=== PATIENT | male | born 1985 | race Caucasian/White ===

== ENCOUNTER 2022-02-13 10:01 | Emergency (ER) | payer SELFPAY ==
[2022-02-13 10:05] VITALS: BP 139/93; PULSE 110; RESP 22; TEMP 37.1; O2SAT 100; BMI 29.5
[2022-02-13 10:27] LABS: Strep A Nucleic Acid Negative (Negative)
[2022-02-13 10:35] LABS: COVID-19 Test Negative (Negative); IDNOW Serial# 16C4AD1C
[2022-02-13 10:37] LABS: IDNOW Serial# 08D9AD1C
[2022-02-13 10:38] LABS: Influenza A Negative (Negative); Influenza B2 Negative (Negative)
--- NOTE | 2022-02-13 10:48 | ED_ITS ---
HPI - General Adult General Chief complaint: General Medical Stated complaint: Fever/Chills/body aches Time Seen by Provider: 02/13/22 10:48 Source: patient Mode of arrival: ambulatory Limitations: no limitations History of Present Illness HPI narrative: Patient is a 36 year old male presenting to the emergency department today with fever, chills, and feeling generally unwell. Patient states that his nieces were recently sick with a viral illness and he is concerned that he may have got it from them. Patient states that he feels generally unwell with body aches and a subjective fever. Patient denies any dizziness, lightheadedness, abdominal pain, nausea, vomiting, chills, blurry vision, double vision, loss of vision, chest pain, difficulty breathing, shortness of breath, back pain, night sweats, pain with urination, increased urinary frequency, increased urinary urgency, blood in his urine or stool, syncope or a near syncopal episode, recent trauma or falls, bowel incontinence, bladder incontinence, bowel retention, bladder retention, or any other complaints at this time. Onset (ago): day(s) Severity: mild Relieving factors: none Exacerbating factors: none Treatments prior to arrival: none Related Data Allergies Allergy/AdvReac Type Severity Reaction Status Date / Time No Known Allergies Allergy Unverified 08/15/20 16:31 Review of Systems Constitutional: Constitutional: Reports no additional constitutional complaints, Reports body ache(s), Denies chills, Reports fever(s) and Denies night sweats Eyes: Eyes: Reports no additional eye complaints, Denies blurry vision, Denies change in vision, Denies diplopia, Denies eye discharge, Denies loss of vision and Denies eye pain ENT: Denies dizziness Cardiovascular: Cardiovascular: Reports no additional cardiovascular complaints, Denies chest pain, Denies lightheadedness, Denies Loss of Consciousness and Denies dyspnea Respiratory: Respiratory: Reports no additional respiratory complaints and Denies dyspnea Gastrointestinal: Gastrointestinal: Reports no additional gastrointestinal complaints, Denies abdominal pain, Denies melena, Denies hematochezia, Denies change in bowel habits and Denies change in stool character Genitourinary: Genitourinary: Reports no additional male genitourinary complaints, Denies hematuria, Denies oliguria, Denies difficulty urinating, Denies dysuria, Denies urinary frequency, Denies urinary hesitancy, Denies urinary incontinence and Denies urinary urgency Musculoskeletal: Musculoskeletal: Reports no additional musculoskeletal complaints, Denies numbness and Denies tingling Neurologic: Denies dizziness, Denies loss of vision, Denies numbness and Denies tingling Psychiatric: Psychiatric: Reports no additional psychiatric complaints Endocrine: Endocrine: Reports no additional endocrine complaints Hematologic/Lymphatic: Hematologic/Lymphatic: Reports no additional hematologic/lymphatic complaints Allergic/Immunologic: Allergic/Immunologic: Reports no additional allergic/immunologic complaints [facility] Past Medical History Attestation statement: The following information was validated with the patient. Source: old records reviewed Medical History Asthma Social History Social History Advance Directives: No Advance Directives Information Provided: No Physical Exam ED Vital Signs: Vital Signs - 24 hr 02/13/22 10:05 Temperature 98.8 F Pulse Rate 110 H Respiratory Rate 22 H Blood Pressure 139/93 H Pulse Oximetry 100 BMI result Body Mass Index 29.5 Const General: cooperative, no acute distress, alert and awake Nutritional Appearance: well nourished Orientation/consciousness: patient oriented x3 Limitations: no limitations HENMT Head: Yes normal to inspection and Yes atraumatic Ears: hearing grossly normal bilaterally and external ears normal General nose exam: Normal external nose present, no nasal discharge noted and no epistaxis Face and sinus: Yes normal facial exam, No abrasion and No laceration Mouth: Normal oral and palatal mucosa present, no drooling and no muffled voice Eyes General: appearance normal, both eyes and all related structures Periorbital: periorbital findings normal Eyelids: Yes eyelids normal Conjunctivae: conjunctivae normal Pupils: Equal, round and reactive pupils present EOM: EOMs intact bilaterally Neck Neck: Yes normal visual inspection, Yes full ROM and Yes no lymphadenopathy Chest Chest palpation & inspection: normal inspection of the chest Resp Effort & Inspection: normal respiratory effort and able to speak in complete sentences Auscultation: clear to auscultation bilaterally Cardio Rate: regular rate Rhythm: regular rhythm GI Inspection: Yes normal to inspection Neuro General: patient oriented x3 and moves all extremities Cranial nerves: Yes Equal, round and reactive pupils present Cognition (Neuro): normal cognition Motor exam (neuro): 5/5 motor strength present throughout Sensory Exam: Normal double simultaneous stimulation for sensation Coordination: [id number] test normal Extrem General: Yes normal to inspection, Yes full ROM and Yes capillary refill normal Psych Appearance: grossly normal Mental Status: mental status grossly normal Affect: normal affect Attitude: cooperative Thought process: Normal thought process present Thought content: Normal thought content present Insight: Good insight present (Psych) Medical Decision Making MDM Narrative Medical decision making narrative: Patient is a 36 year old male presenting to the emergency department today with a subjective fever and body aches. Patient's physical exam was unremarkable. Patient's rapid COVID-19, influenza, and strep tests were negative. I explained my physical exam findings as well as all test results to the patient. I answered all questions asked by the patient. I stressed the importance of the patient taking his medication as prescribed. I stressed the importance of the patient following up with his primary care provider. I stressed the importance of the patient returning to the emergency department immediately if his symptoms were to worsen or if he were to develop any dizziness, shortness of breath, difficulty breathing, chest pain, blurry vision, loss of vision, nausea, vomiting, abdominal pain, fever, chills, back pain, or any other complaints. Patient verbalized agreement and understanding with this treatment plan and discharge. Differential Diagnosis Differential Diagnosis: viral illness, fever Medical Records Medical records reviewed: Yes I reviewed the patient's medical records. Lab Data Lab results reviewed: Yes I reviewed the patient's lab results. Labs: Lab Results 02/13/22 02/13/22 02/13/22 Range/Units 10:12 10:12 10:12 COVID-19 ([facility]) Negative (Negative) COVID-19 Clin Com See Note Influenza Type A ([facility]) Negative (Negative) Influenza Type B ([facility]) Negative (Negative) Influenza A & B Note See Note S. pyogenes GrpA [facility]ON Negative (Negative) Discharge Plan Discharge Clinical Impression: Viral illness Patient Disposition: Home, Self-Care Instructions: Viral Syndrome (ED) Additional Instructions: Follow up with your primary care provider. Return to the emergency department immediately if your symptoms worsen or if you develop any dizziness, shortness of breath, difficulty breathing, chest pain, blurry vision, loss of vision, nausea, vomiting, abdominal pain, fever, chills, back pain, or any other complaints. Referrals: Physician,None [Primary Care Provider] - 2 days (Follow up with your PCP. ) Stand Alone Forms: Work/School Release Print Language: Yakut
== END 2022-02-13 11:20 | disposition home or self-care (01) ==
PROVIDERS: Emergency Provider Emergency Medicine
DX: B34.9 Viral infection, unspecified (principal); Z20.822 Contact with and (suspected) exposure to COVID-19; R50.9 Fever, unspecified
CPT/HCPCS: 87502; 87635; 87651; 99283

== ENCOUNTER 2022-02-14 20:09 | Emergency (ER) | payer SELFPAY ==
--- NOTE | ~2022-02-14 | CT_ITS ---
EXAMINATION: CT SOFT TISSUE NECK WITH CONTRAST CLINICAL INFORMATION: Right peritonsillar abscess. COMPARISON: None TECHNIQUE: Following the intravenous administration of 60 mL of Omnipaque 350 intravenous contrast, helical imaging was performed in the axial plane with generation of coronal and sagittal reformatted images. This CT examination was performed using dose optimization techniques as appropriate, variously including the following: *Automated exposure control. *Adjustment of mA and/or kV according to patient size (this includes techniques or standardized protocols for targeted exams where dose is matched to indication/reason for exam; i.e. extremities or head). *Use of iterative reconstruction technique. DLP: 875 mGy-cm FINDINGS: There is asymmetric prominence of the right palatine tonsil in the region of the oropharynx with heterogeneous enhancement and slight central hypoenhancement, consistent with a parapharyngeal phlegmon/early abscess. There is mild effacement of the adjacent fascial planes. There is mild mass effect on the airway which remains patent. No drainable fluid collection. Enlarged right cervical lymph nodes measuring up to 1.7 x 1.9 cm (see axial image 50/129) in greatest axial dimension, likely reactive. No additional lymphadenopathy. The parotid glands are homogeneous in attenuation. The submandibular glands are normal. The carotid sheath vasculature opacify normally. The thyroid gland is normal. The superior mediastinum is unremarkable. The lung apices are clear. The mastoid air cells and visualized portions of the paranasal sinuses are well-aerated. The temporomandibular joints are normal. No periapical disease is identified. No osseous abnormalities are seen. The imaged portions of the brain parenchyma are unremarkable. CT/CT soft tissue neck w con IMPRESSION: 1. Asymmetric prominence of the right palatine tonsil with heterogeneous enhancement, consistent with parapharyngeal phlegmon/early abscess formation. Mild effacement of the adjacent fascial planes with mass effect on the airway which remains patent. No drainable fluid collection. 2. Enlarged right cervical lymph nodes, likely reactive.
[2022-02-14 20:34] VITALS: BP 133/75; PULSE 106; RESP 16; TEMP 38.1; O2SAT 97; BMI 29.5
--- NOTE | 2022-02-14 21:12 | ED.URI ---
HPI - URI/Sore Throat General Chief Complaint: Upper Respiratory Symptoms Stated Complaint: right side of face hurts/ swollen-tonsils? Time Seen by Provider: 02/14/22 21:12 Source: patient Mode of arrival: ambulatory Limitations: no limitations History of Present Illness HPI Narrative: Patient with no significant past medical history been having sore throat body aches for last 1 week was seen here yesterday flu COVID and strep test was negative patient discharged home for viral pharyngitis comes back as having fever now and swelling on the right side of the neck worsening of pain to swallow Related Data Previous Rx's Medication Instructions Recorded amoxicillin 875 mg-potassium 1 tab PO BID #20 tab 02/14/22 clavulanate 125 mg tablet ibuprofen 600 mg tablet 600 mg PO Q6H PRN #30 tab 02/14/22 Allergies Allergy/AdvReac Type Severity Reaction Status Date / Time No Known Allergies Allergy Unverified 08/15/20 16:31 Review of Systems Review of Systems: Yes all other systems are reviewed and are negative [facility] Past Medical History Medical History Asthma Social History Social History Advance Directives: No Physical Exam Vital Signs: Vital Signs: Last Vital Signs Temp 99.1 F 02/14/22 23:17 Pulse 88 02/14/22 23:17 Resp 16 02/14/22 23:17 BP 113/71 02/14/22 23:17 Pulse Ox 96 02/14/22 23:17 BMI result Body Mass Index 29.5 Appearance: Alert. Oriented X3. No acute distress. Febrile to touch ENT: Right tonsil enlarged with exudate and erythema Neck: Right upper cervical lymphadenopathy++ Neck supple. CVS: Normal heart rate and rhythm. Pulses normal. Respiratory: No respiratory distress. Equal air entry bilateral, Abdomen: Soft and nontender. Skin: Skin warm and dry. Normal skin color. Normal skin turgor. Neuro: Oriented X 3. MDM - URI/Sore Throat Lab Data Attestation: I reviewed the patient's lab results. Result diagrams: 02/14/22 21:49 02/14/22 21:49 Labs: Lab Results 03/19/22 03/19/22 Range/Units 21:49 21:49 WBC 12.8 H (4.8-10.8) X10*3/uL RBC 5.30 (4.60-5.80) X10*6/uL Hgb 15.6 (14.0-18.0) g/dl Hct 47.4 (42.0-52.0) % MCV 89.4 (80.0-98.0) fL MCH 29.4 (27.0-33.0) pg MCHC 32.9 (31.0-36.0) g/dl RDW 14.2 (11.0-16.0) % Plt Count 221 (160-400) X10*3/uL MPV 11.0 (9.4-12.4) fL Immature Gran % (Auto) 0.3 (0.0-0.4) % Neut % (Auto) 83.3 H (45-73) % Lymph % (Auto) 6.6 L (20-40) % Eddy % (Auto) 9.2 (2-11) % Eos % (Auto) 0.2 (0-4) % Baso % (Auto) 0.4 (0-2) % Lymph # (Auto) 0.9 L (1.2-4.9) X10*3/uL Eddy # (Auto) 1.2 (0.1-1.2) X10*3/uL Eos # (Auto) 0.0 (0.0-0.4) X10*3/uL Baso # (Auto) 0.1 (0.0-0.2) X10*3/uL Abs Immat Gran (auto) 0.04 H (0.00-0.03) X10*3/uL Absolute Neuts (auto) 10.7 H (2.0-8.3) x10*3/uL Absolute Nucleated RBC 0.000 (0.0-0.012) X10*3/uL Nucleated RBC % (auto) 0.0 (0.0-0.2) /100WBC Sodium 138 (135-145) mmol/L Potassium 4.0 (3.3-5.1) mmol/L Chloride 103 (96-108) mmol/L Carbon Dioxide 23 (22-29) mmol/L Anion Gap 16 (12-20) BUN 15 (9-16) mg/dL Creatinine 0.82 (0.5-1.4) mg/dL Estim Creat Clear Calc 104.1 Estimated GFR > 60 Random Glucose 99 (60-115) mg/dL Calcium 9.5 (8.4-10.2) mg/dL Discharge Plan Discharge Clinical Impression: Abscess of tonsil Patient Disposition: Home, Self-Care Instructions: Peritonsillar Abscess (ED) Additional Instructions: Drink plenty of fluids Antibiotic as advised Follow with ENT/PCP if not better Prescriptions: New ibuprofen 600 mg tablet 600 mg PO Q6H PRN (Reason: pain) Qty: 30 0RF amoxicillin-pot clavulanate 875-125 mg tablet 1 tab PO BID Qty: 20 0RF Referrals: Oleksandr Bradley [Physician] - 5 days Stand Alone Forms: Work/School Release Interventions: ED Discharge Assessment Last Done: 02/14/22 23:40 Discharge Date/Time: 02/15/22 00:08
[2022-02-14 21:55] LABS: MANUAL DIFF FLAG NO
[2022-02-14 22:03] LABS: Basophils Absolute Auto 0.1 X10*3/uL (0.0-0.2); Basophils Percent Auto 0.4 % (0-2); Eosinophils Percent Auto 0.2 % (0-4); Hematocrit 47.4 % (42.0-52.0); Hemoglobin 15.6 g/dl (14.0-18.0); Imm Gran Abs Auto 0.04 X10*3/uL (0.00-0.03); Imm Gran Pct Auto 0.3 % (0.0-0.4); Lymphocytes Absolute Auto 0.9 X10*3/uL (1.2-4.9); Lymphocytes Percent Auto 6.6 % (20-40); Mean Corpuscular HGB Conc 32.9 g/dl (31.0-36.0); Mean Corpuscular Hemoglobin 29.4 pg (27.0-33.0); Mean Corpuscular Volume 89.4 fL (80.0-98.0); Monocytes Absolute Auto 1.2 X10*3/uL (0.1-1.2); Monocytes Percent Auto 9.2 % (2-11); Neutrophils Absolute Auto 10.7 x10*3/uL (2.0-8.3); Neutrophils Percent Auto 83.3 % (45-73); Platelet Count 221 X10*3/uL (160-400); Red Cell Distribution Width 14.2 % (11.0-16.0); White Blood Count 12.8 X10*3/uL (4.8-10.8)
[2022-02-14] MEDS: cefTRIAXone sodium 1 GM in 0.9 % Sodium Chloride 50 ML IV (22:07)
[2022-02-14] MEDS: Ketorolac Tromethamine 30 MG/ML VIAL IVPUSH (22:07)
[2022-02-14 22:08] LABS: Anion Gap 16 (12-20); Blood Urea Nitrogen 15 mg/dL (9-16); Calcium 9.5 mg/dL (8.4-10.2); Carbon Dioxide 23 mmol/L (22-29); Chloride 103 mmol/L (96-108); Creatinine Clr Calc Pharmacy 104.1; Estimated Glomerular Filt Rate > 60; Glucose Random 99 mg/dL (60-115); Sodium 138 mmol/L (135-145)
[2022-02-14] MEDS: dexAMETHasone sod phosphate 10 MG/ML VIAL IVPUSH (22:08)
[2022-02-14] MEDS: 0.9 % Sodium Chloride 1,000 ML 999 ML IV (22:34)
[2022-02-14] MEDS: iohexoL 350 MG/ML 100 ML INFUS..BTL IV (22:37)
[2022-02-14 23:17] VITALS: BP 113/71; PULSE 88; RESP 16; TEMP 37.3; O2SAT 96
== END 2022-02-15 00:08 | disposition home or self-care (01) ==
PROVIDERS: Emergency Provider Internal Medicine
DX: J36 Peritonsillar abscess (principal); R50.9 Fever, unspecified; R59.1 Generalized enlarged lymph nodes
CPT/HCPCS: 36415; 70491; 80048; 85025; 96361; 96365; 96375; 99284; J0696; J1100; J1885; Q9967

== ENCOUNTER 2022-12-14 08:36 | Emergency (ER) | payer SELFPAY ==
--- NOTE | ~2022-12-14 | XR_ITS ---
EXAMINATION: XR RIBS, LEFT CLINICAL INFORMATION: Chest pain after lifting COMPARISON: Chest radiograph 04/12/2020 TECHNIQUE: Single view chest and 3 additional views of the left ribs were obtained. FINDINGS: Lungs are clear. No consolidation, pneumothorax, or pleural effusion. The cardiomediastinal silhouette and pulmonary vasculature are normal. Osseous structures are unremarkable. Ribs are intact. No fractures are identified. XR/XR ribs LT min 3V w CXR1V IMPRESSION: Unremarkable examination.
[2022-12-14 09:13] VITALS: BP 117/78; PULSE 82; RESP 18; TEMP 36.9; O2SAT 98; BMI 29.2
[2022-12-14 09:58] LABS: MANUAL DIFF FLAG NO
[2022-12-14 10:02] LABS: Basophils Absolute Auto 0.1 X10*3/uL (0.0-0.2); Basophils Percent Auto 0.9 % (0-2); Eosinophils Absolute Auto 0.1 X10*3/uL (0.0-0.4); Eosinophils Percent Auto 0.8 % (0-4); Hematocrit 47.2 % (42.0-52.0); Hemoglobin 15.8 g/dl (14.0-18.0); Imm Gran Abs Auto 0.05 X10*3/uL (0.00-0.03); Imm Gran Pct Auto 0.5 % (0.0-0.4); Lymphocytes Absolute Auto 1.6 X10*3/uL (1.2-4.9); Lymphocytes Percent Auto 15.5 % (20-40); Mean Corpuscular HGB Conc 33.5 g/dl (31.0-36.0); Mean Corpuscular Hemoglobin 29.5 pg (27.0-33.0); Mean Corpuscular Volume 88.1 fL (80.0-98.0); Mean Platelet Volume 11.6 fL (9.4-12.4); Monocytes Percent Auto 9.7 % (2-11); Neutrophils Absolute Auto 7.5 x10*3/uL (2.0-8.3); Neutrophils Percent Auto 72.6 % (45-73); Platelet Count 211 X10*3/uL (160-400); Red Blood Count 5.36 X10*6/uL (4.60-5.80); Red Cell Distribution Width 13.7 % (11.0-16.0); White Blood Count 10.3 X10*3/uL (4.8-10.8)
[2022-12-14 10:04] LABS: Appearance Urine Clear; Color Urine Yellow; Glucose Urine UA Negative (Negative); Leukocyte Esterase Urine Negative (Negative); Nitrite Urine Negative (Negative); PH 6.5 (5.0-9.0); Specific Gravity - Urine 1.025 (1.005-1.025); Urine Blood Negative (Negative); Urine Ketones Trace mg/dL (Negative); Urine Protein Negative (Neg-Trace)
--- OUTSIDE RECORDS SUMMARY | 2022-12-14 10:10 | XMS_ITS | Continuity of Care Document ---
:1985 Author Organization [facility] Address Unavailable , Care Team Providers Name Role Phone Not on Staff, PCP Primary Care Physician Unavailable Encounter [facility] [place] Date(s): 01/27/22 - 02/26/22 [facility] Allergies, Adverse Reactions, Alerts No Known Allergies Medications Zofran 4 mg oral tablet 1 tablet = 4 mg, By Mouth, Once, # 10 tablet, 0 Refills, Soft Stop, 03/22/19 15:54:51 EDT Start Date: 03/22/19 Status: Ordered
--- NOTE | 2022-12-14 10:12 | ED.ABDPAIN ---
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 Patient reports pain is worsened with palpation and movement. He denies any associated cough, fever, difficulty breathing, vomiting, diarrhea. Related Data Previous Rx's Medication Instructions Recorded amoxicillin 875 mg-potassium 1 tab PO BID #20 tabs 02/14/22 clavulanate 125 mg tablet ibuprofen 600 mg tablet 600 mg PO Q6H PRN pain #30 tabs 02/14/22 cyclobenzaprine 10 mg tablet 10 mg PO TID PRN muscle spasm #10 12/14/22 tabs ibuprofen 600 mg tablet 600 mg PO Q6H PRN pain #30 tabs 12/14/22 lidocaine 5 % topical patch 1 patch topical DAILY #15 ea 12/14/22 (Lidoderm) Allergies Allergy/AdvReac Type Severity Reaction Status Date / Time No Known Allergies Allergy Unverified 08/15/20 16:31 Review of Systems Review of Systems Yes all other systems are reviewed and are negative Constitutional: Reports no additional constitutional complaints, Denies body ache(s), Denies chills, Denies fever(s), Denies headache(s) and Denies weakness Eyes: Reports no additional eye complaints and Denies change in vision Reports system reviewed and no additional complaints, except as documented, Denies dizziness, Denies headache(s), Denies nasal congestion, Denies nasal discharge and Denies neck pain Cardiovascular: Reports no additional cardiovascular complaints, Reports chest pain, Denies leg edema and Denies dyspnea Respiratory: Reports no additional respiratory complaints, Denies cough and Denies dyspnea Gastrointestinal: Reports no additional gastrointestinal complaints, Denies abdominal pain, Denies diarrhea, Denies nausea and Denies vomiting Genitourinary: Denies urinary incontinence Musculoskeletal: Reports no additional musculoskeletal complaints, Denies back pain, Denies arthralgias, Denies joint swelling, Denies neck pain, Denies numbness and Denies tingling Skin/Breast: Reports system reviewed and no additional complaints, except as docu and Denies rash Reports system reviewed and no additional complaints, except as documented, Denies dizziness, Denies headache(s), Denies numbness, Denies tingling and Denies weakness PMFSH Past Medical History Attestation statement: The following information was validated with the patient. Source: old records reviewed and nursing notes reviewed Medical History Asthma Social History Social History Alcohol intake: unknown Smoked in Last 30 Days: No Use of substances other than those prescribed or required for medical reasons: Unknown Advance Directives: No Advance Directives Information Provided: No Physical Exam ED Vital Signs: Vital Signs - 24 hr 12/14/22 09:13 12/14/22 12:00 Temperature 98.5 F 98.3 F Pulse Rate 82 59 Respiratory Rate 18 16 Blood Pressure 117/78 126/74 Pulse Oximetry 98 95 Oxygen Delivery Method Room Air Room Air BMI result Body Mass Index 29.2 Const General: cooperative, no acute distress, alert and awake Nutritional Appearance: well nourished Orientation/consciousness: patient oriented x3 Limitations: no limitations HENMT Head: Yes normal to inspection and Yes atraumatic Ears: hearing grossly normal bilaterally and external ears normal General nose exam: Normal external nose present, no nasal discharge noted and no epistaxis Face and sinus: Yes normal facial exam, No abrasion and No laceration Mouth: Normal oral and palatal mucosa present, no drooling and no muffled voice Eyes General: appearance normal, both eyes and all related structures Pupils: Equal, round and reactive pupils present Neck Neck: Yes normal visual inspection, Yes full ROM and Yes no lymphadenopathy Chest Chest palpation & inspection: normal inspection of the chest and tenderness (There is tenderness over the left lateral chest wall to palpation.) Resp Effort & Inspection: normal respiratory effort and able to speak in complete sentences Auscultation: clear to auscultation bilaterally Cardio Rate: regular rate Rhythm: regular rhythm Peripheral pulses: Peripheral pulses 2+ throughout GI Inspection: Yes normal to inspection Palpation (GI): Soft to palpation and nontender Auscultation: normal bowel sounds General: Yes no CVA tenderness Back/Spine/Pelvis Back: no CVA tenderness Neuro General: patient oriented x3 and moves all extremities Cranial nerves: Yes Equal, round and reactive pupils present Cognition (Neuro): normal cognition Motor exam (neuro): 5/5 motor strength present throughout Sensory Exam: Normal double simultaneous stimulation for sensation Coordination: [id number] test normal Extrem General: Yes normal to inspection, Yes full ROM and Yes capillary refill normal Psych Appearance: grossly normal Mental Status: mental status grossly normal Affect: normal affect Attitude: cooperative Thought process: Normal thought process present Thought content: Normal thought content present Insight: Good insight present (Psych) Course Course Course Narrative: Labs, UA negative, x-ray unremarkable. Likely chest wall strain. Patient given toradol IM. Will discharge home with NSAID, flexeril, lidoderm patches. Reviewed worrisome signs/symptoms with patient and when to seek additional care. Comfortable with plan for discharge home. Medical Decision Making Medical Decision Making [facility] Narrative: 37-year-old male here with left chest wall pain after lifting a patient 5 days ago at work. Tenderness over the left lateral chest wall with no deformity or crepitus. No abdominal pain on exam. Likely chest wall strain Labs and UA ordered from triage will review. Will obtain x-ray Differential Diagnosis Differential Diagnoses: The differential diagnosis associated with the presentation includes Chest wall strain no focal abdominal pain to suggest pancreatitis/gastritis/underlying abdominal pathology Lab Data [facility] Lab Attestation statement: I reviewed the patient's lab results. 12/14/22 09:47 12/14/22 09:47 Labs: Lab Results 12/14/22 12/14/22 12/14/22 Range/Units 09:47 09:47 09:47 WBC 10.3 (4.8-10.8) X10*3/uL RBC 5.36 (4.60-5.80) X10*6/uL Hgb 15.8 (14.0-18.0) g/dl Hct 47.2 (42.0-52.0) % MCV 88.1 (80.0-98.0) fL MCH 29.5 (27.0-33.0) pg MCHC 33.5 (31.0-36.0) g/dl RDW 13.7 (11.0-16.0) % Plt Count 211 (160-400) X10*3/uL MPV 11.6 (9.4-12.4) fL Immature Gran % (Auto) 0.5 H (0.0-0.4) % Neut % (Auto) 72.6 (45-73) % Lymph % (Auto) 15.5 L (20-40) % [place] % (Auto) 9.7 (2-11) % Eos % (Auto) 0.8 (0-4) % Baso % (Auto) 0.9 (0-2) % Lymph # (Auto) 1.6 (1.2-4.9) X10*3/uL [place] # (Auto) 1.0 (0.1-1.2) X10*3/uL Eos # (Auto) 0.1 (0.0-0.4) X10*3/uL Baso # (Auto) 0.1 (0.0-0.2) X10*3/uL Abs Immat Gran (auto) 0.05 H (0.00-0.03) X10*3/uL Absolute Neuts (auto) 7.5 (2.0-8.3) x10*3/uL Absolute Nucleated RBC 0.000 (0.0-0.012) X10*3/uL Nucleated RBC % (auto) 0.0 (0.0-0.2) /100WBC Sodium 138 (135-145) mmol/L Potassium 4.0 (3.3-5.1) mmol/L Chloride 106 (96-108) mmol/L Carbon Dioxide 22 (22-29) mmol/L Anion Gap 14 (12-20) BUN 15 (9-16) mg/dL Creatinine 0.79 (0.5-1.4) mg/dL Estim Creat Clear Calc 106.7 Estimated GFR > 60 Random Glucose 104 (60-115) mg/dL Calcium 9.5 (8.4-10.2) mg/dL Total Bilirubin 0.3 (0.0-1.0) mg/dL Direct Bilirubin < 0.2 (0.0-0.5) mg/dL AST 30 (5-37) U/L ALT 44 H (0-40) U/L Alkaline Phosphatase 72 (39-117) U/L Total Protein 7.1 (6.5-8.0) g/dL Albumin 4.6 (3.5-5.0) g/dL Lipase 18 (8-78) U/L Urine Color Yellow Urine Appearance Clear Urine pH 6.5 (5.0-9.0) Ur Specific [place] 1.025 (1.005-1.025) Urine Protein Negative (Neg-Trace) mg/dL Urine Glucose (UA) Negative (Negative) mg/dL Urine Ketones Trace (Negative) mg/dL Urine Blood Negative (Negative) Urine Nitrite Negative (Negative) Ur Leukocyte Esterase Negative (Negative) Independent Interpretation I performed an independent interpretation of an: Plain X-Ray (Independetely reviewed CXR which shows no acute finding) Radiology Impression Discussion of test interpretation with radiology: I have reviewed the radiologist's reading. Radiologist Impression: [address] [address] XRay Report Signed Patient: Kiko Suarez MR#: [id number] : 1985 Acct:[id number] Age/Sex: 37 / M ADM Date: 12/14/22 Loc: .ED Attending Dr: Ordering Physician: Clarissa Portillo NP Date of Service: 12/14/22 Procedure(s): XR ribs LT min 3V w CXR1V Accession Number(s): [id number] cc: Clarissa Portillo NP~ EXAMINATION: XR RIBS, LEFT CLINICAL INFORMATION: Chest pain after lifting COMPARISON: Chest radiograph 04/12/2020 TECHNIQUE: Single view chest and 3 additional views of the left ribs were obtained. FINDINGS: Lungs are clear. No consolidation, pneumothorax, or pleural effusion. The cardiomediastinal silhouette and pulmonary vasculature are normal. Osseous structures are unremarkable. Ribs are intact. No fractures are identified. XR/XR ribs LT min 3V w CXR1V IMPRESSION: Unremarkable examination. Medications Administered Discontinued Medications Generic Name Dose Route Start Last Admin Trade Name Freq PRN Reason Stop Dose Admin Ketorolac Tromethamine 30 mg 12/14/22 12:09 12/14/22 12:16 Ketorolac Tromethamine 30 Mg/Ml Vial IM 12/14/22 12:10 30 mg ONCE ONE Administration Discharge Plan Discharge Clinical Impression: Chest wall muscle strain Patient Disposition: Home, Self-Care Instructions: Muscle Strain (ED), Chest Wall Pain (ED) Additional Instructions: Your lab work, urine testing and x-ray all look normal. You may have pulled a muscle transferring this patient while working. Apply heat or ice to the area Gentle stretching No heavy lifting or bending Discuss with your employer that this injury occurred while working. They may want to have you follow up with occupational health Prescriptions: New ibuprofen 600 mg tablet 600 mg PO Q6H PRN (Reason: pain) Qty: 30 0RF cyclobenzaprine 10 mg tablet 10 mg PO TID PRN (Reason: muscle spasm) Qty: 10 0RF lidocaine [Lidoderm] 5 % adhesive patch,medicated 1 patch topical DAILY Qty: 15 0RF Rx Instructions: leave on most painful area for up to 12 hrs No Action ibuprofen 600 mg tablet 600 mg PO Q6H PRN (Reason: pain) Qty: 30 0RF amoxicillin-pot clavulanate 875-125 mg tablet 1 tab PO BID Qty: 20 0RF Referrals: Physician,None [Primary Care Provider] - Stand Alone Forms: Work/School Release Interventions: ED Discharge Assessment Last Done: 12/14/22 12:20
[2022-12-14 10:19] LABS: Alanine Aminotransferase 44 U/L (0-40); Albumin Level 4.6 g/dL (3.5-5.0); Alkaline Phosphatase 72 U/L (39-117); Anion Gap 14 (12-20); Aspartate Amino Transferase 30 U/L (5-37); Bilirubin Direct < 0.2 mg/dL (0.0-0.5); Bilirubin Total 0.3 mg/dL (0.0-1.0); Blood Urea Nitrogen 15 mg/dL (9-16); Calcium 9.5 mg/dL (8.4-10.2); Carbon Dioxide 22 mmol/L (22-29); Chloride 106 mmol/L (96-108); Creatinine Clr Calc Pharmacy 106.7; Estimated Glomerular Filt Rate > 60; Glucose Random 104 mg/dL (60-115); Lipase 18 U/L (8-78); Sodium 138 mmol/L (135-145); Total Protein 7.1 g/dL (6.5-8.0)
[2022-12-14 12:00] VITALS: BP 126/74; PULSE 59; RESP 16; TEMP 36.8; O2SAT 95
[2022-12-14] MEDS: Ketorolac Tromethamine 30 MG/ML VIAL IM (12:16)
== END 2022-12-14 12:27 | disposition home or self-care (01) ==
PROVIDERS: Emergency Provider Emergency Medicine
DX: S29.011A Strain of muscle and tendon of front wall of thorax, initial encounter (principal); X50.0XXA Overexertion from strenuous movement or load, initial encounter; Y93.F2 Activity, caregiving, lifting; Y92.129 Unspecified place in nursing home as the place of occurrence of the external cause; Y99.0 Civilian activity done for income or pay
CPT/HCPCS: 36415; 71101; 80048; 80076; 81003; 83690; 85025; 96372; 99284; J1885

== ENCOUNTER 2023-09-03 23:58 | Emergency (ER) | payer SELFPAY ==
[2023-09-04 00:26] VITALS: BP 121/77; PULSE 104; RESP 18; TEMP 37.8; O2SAT 96; BMI 29.4
[2023-09-04 01:49] VITALS: BP 110/65; PULSE 90; RESP 16; TEMP 37.2; O2SAT 99
--- NOTE | 2023-09-04 02:13 | ED.GENADULT ---
HPI - General Adult General Chief complaint: General Medical Stated complaint: Fever/Headache/Bodyaches Time Seen by Provider: 09/04/23 01:29 Source: patient Mode of arrival: ambulatory History of Present Illness HPI narrative: 38-year-old male who presents with headache abdominal pain diarrhea, cough, fever, body aches since last night and reports fevers with a T-max of 102 degrees. Related Data Previous Rx's Medication Instructions Recorded amoxicillin 875 mg-potassium 1 tab PO BID #20 tabs 02/14/22 clavulanate 125 mg tablet ibuprofen 600 mg tablet 600 mg PO Q6H PRN pain #30 tabs 02/14/22 cyclobenzaprine 10 mg tablet 10 mg PO TID PRN muscle spasm #10 12/14/22 tabs ibuprofen 600 mg tablet 600 mg PO Q6H PRN pain #30 tabs 12/14/22 lidocaine 5 % topical patch 1 patch topical DAILY #15 ea 12/14/22 (Lidoderm) Allergies Allergy/AdvReac Type Severity Reaction Status Date / Time No Known Allergies Allergy Verified 09/04/23 00:26 Review of Systems Review of Systems: Pertinent positives and negatives as stated in HPI ON LICENSE OF [facility] Past Medical History Source: nursing notes reviewed Medical History Asthma Social History Social History Alcohol intake: unknown Smoked in Last 30 Days: Yes Use of substances other than those prescribed or required for medical reasons: No Advance Directives: No Advance Directives Information Provided: Yes Physical Exam ED Vital Signs: Vital Signs - 24 hr 09/04/23 00:26 09/04/23 01:49 Temperature 100.1 F 99.0 F Pulse Rate 104 H 90 Respiratory Rate 18 16 Blood Pressure 121/77 110/65 Pulse Oximetry 96 99 Oxygen Delivery Method Room Air Room Air BMI result Body Mass Index 29.4 VITAL SIGNS: Reviewed. GENERAL: Well developed, well nourished, in no acute distress. HEAD: Normocephalic/atraumatic EYES: PERRLA, EOMI EARS: Ext canals without abnormality, TMs non-bulging and non-erythematous NOSE: Nares patent bilateral OROPHARYNX: no oral lesions noted, posterior pharynx clear and non-erythematous without noted tonsillar enlargement/erythema/exudates NECK: Supple, no adenopathy LUNGS: Normal breath sounds. No adventitious sounds or accessory muscle use. SpO2<99> CARDIOVASCULAR: Regular rate and rhythm without noted murmurs ABDOMEN: Soft, non-tender, non-distended with bowel sounds. MUSCULOSKELETAL: No tenderness, deformities, or effusions noted on gross inspection. EXTREMITIES: No cyanosis, clubbing or edema. SKIN: Inspection of the skin reveals no rashes NEUROLOGIC: Alert and oriented x 4. Strength and sensation to light touch were grossly intact x 4. Medical Decision Making Medical Decision Making [facility] Narrative: 38-year-old male with history and clinical presentation, DDX: Viral gastroenteritis, viral syndrome, strep pharyngitis, COVID/influenza Reviewed all laboratory investigations, there is mild leukocytosis with left shift but no knee Isabel thrombocytopenia. Patient is afebrile here in the emergency room and likely reflective of having received antipyretics prior to presentation. Chemistry indices are without MONTSE or electrolytes/liver enzyme abnormalities. There is a non anion gap acidosis of unclear etiology. COVID-19/influenza/strep pharyngitis are all negative for acute findings. Patient is otherwise discharged home with viral illness. Differential Diagnosis Differential Diagnoses: The differential diagnosis associated with the presentation includes Please see the discussion above Admission/Observation Consideration of admission/observation: Escalation of care including admission/observation considered Please see the discussion above Lab Data [facility] Lab Attestation statement: I reviewed the patient's lab results. Please see the discussion above 09/04/23 01:18 09/04/23 01:18 Labs: Lab Results 09/04/23 09/04/23 09/04/23 Range/Units 00:40 01:18 02:29 WBC 11.8 H (4.8-10.8) X10*3/uL RBC 5.04 (4.60-5.80) X10*6/uL Hgb 15.3 (14.0-18.0) g/dl Hct 45.4 (42.0-52.0) % MCV 90.1 (80.0-98.0) fL MCH 30.4 (27.0-33.0) pg MCHC 33.7 (31.0-36.0) g/dl RDW 14.1 (11.0-16.0) % Plt Count 186 (160-400) X10*3/uL MPV 11.3 (9.4-12.4) fL Immature Gran % (Auto) 0.3 (0.0-0.4) % Neut % (Auto) 86.5 H (45-73) % Lymph % (Auto) 4.8 L (20-40) % [place] % (Auto) 7.6 (2-11) % Eos % (Auto) 0.2 (0-4) % Baso % (Auto) 0.6 (0-2) % Lymph # (Auto) 0.6 L (1.2-4.9) X10*3/uL [place] # (Auto) 0.9 (0.1-1.2) X10*3/uL Eos # (Auto) 0.0 (0.0-0.4) X10*3/uL Baso # (Auto) 0.1 (0.0-0.2) X10*3/uL Abs Immat Gran (auto) 0.04 H (0.00-0.03) X10*3/uL Absolute Neuts (auto) 10.2 H (2.0-8.3) x10*3/uL Absolute Nucleated RBC 0.000 (0.0-0.012) X10*3/uL Nucleated RBC % (auto) 0.0 (0.0-0.2) /100WBC Sodium 139 (135-145) mmol/L Potassium 3.8 (3.3-5.1) mmol/L Chloride 108 (96-108) mmol/L Carbon Dioxide 17 L (22-29) mmol/L Anion Gap 18 (12-20) BUN 14 (9-16) mg/dL Creatinine 0.90 (0.5-1.4) mg/dL Estim Creat Clear Calc 96.5 Estimated GFR > 60 Random Glucose 131 H (60-115) mg/dL Calcium 9.0 (8.4-10.2) mg/dL Total Bilirubin 0.2 (0.0-1.0) mg/dL AST 17 (5-37) U/L ALT 23 (0-40) U/L Alkaline Phosphatase 64 (39-117) U/L Total Protein 7.2 (6.5-8.0) g/dL Albumin 4.3 (3.5-5.0) g/dL COVID-19 ([facility]) Negative (Negative) COVID-19 Clin Com See Note Influenza Type A (JOSE RAMON) Negative (Negative) Influenza Type B (JOSE RAMON) Negative (Negative) Influenza A & B Note See Note S. pyogenes GrpA JOSE RAMON Negative (Negative) Discharge Plan Discharge Clinical Impression: Viral syndrome Patient Disposition: Home, Self-Care Instructions: Viral Syndrome (ED) Additional Instructions: 1. Resume all home medications as prescribed. 2. Recommend [id number] Tylenol/ibuprofen as needed for body aches and temperatures greater than 100.4. 3. Recommend repeating your COVID-19 testing on Wednesday. Return to the ER for any worsening symptoms. Prescriptions: No Action ibuprofen 600 mg tablet 600 mg PO Q6H PRN (Reason: pain) Qty: 30 0RF amoxicillin-pot clavulanate 875-125 mg tablet 1 tab PO BID Qty: 20 0RF ibuprofen 600 mg tablet 600 mg PO Q6H PRN (Reason: pain) Qty: 30 0RF cyclobenzaprine 10 mg tablet 10 mg PO TID PRN (Reason: muscle spasm) Qty: 10 0RF lidocaine [Lidoderm] 5 % adhesive patch,medicated 1 patch topical DAILY Qty: 15 0RF Rx Instructions: leave on most painful area for up to 12 hrs Interventions: ED Discharge Assessment Last Done: 09/04/23 03:39
--- NOTE | 2023-09-04 02:30 | MHC.EDTECH ---
Issa lopez collected and sent to lab.
[2023-09-04 02:41] LABS: IDNOW Serial# 08D9AD1C; Strep A Nucleic Acid Negative (Negative)
== END 2023-09-04 03:40 | disposition home or self-care (01) ==
PROVIDERS: Emergency Provider Student in an Organized Health Care Education/Training Program
DX: B34.9 Viral infection, unspecified (principal); R50.9 Fever, unspecified; Z11.52 Encounter for screening for COVID-19
CPT/HCPCS: 80053; 85025; 87502; 87635; 87651; 99283; 99284

== ENCOUNTER 2024-09-16 07:51 | Emergency (ER) | payer SELFPAY ==
--- NOTE | ~2024-09-16 | XR_ITS ---
EXAMINATION: XR CHEST CLINICAL INFORMATION: Chest pain COMPARISON: Rib radiograph from 12/14/2022 TECHNIQUE: Frontal view of the chest was obtained. FINDINGS: No focal consolidation. No pneumothorax. Trachea is midline. Cardiac mediastinal silhouette is not enlarged. No large pleural effusion. Osseous structures are intact. Soft tissues are unremarkable. XR/XR chest 1V IMPRESSION: No acute cardiopulmonary process. Electronically signed by: Nanette Mireles MD 09/16/2024 08:48 AM EDT
--- NOTE | 2024-09-16 07:54 | ECG_ITS ---
Test Reason : CHEST PAIN Blood Pressure : / mmHG Vent. Rate : 080 BPM Atrial Rate : 080 BPM P-R Int : 132 ms QRS Dur : 092 ms QT Int : 360 ms P-R-T Axes : 077 059 056 degrees QTc Int : 415 ms Normal sinus rhythm Normal ECG No significant changes when compared with the previous EKG of 12 apr 2020 Referred By: Generic ED Physician Electronically Signed By:NAMITA BLANCA
[2024-09-16 08:02] VITALS: BP 145/71; PULSE 75; RESP 16; TEMP 37.1; O2SAT 99; BMI 29.3
--- NOTE | 2024-09-16 08:15 | ED_ITS ---
HPI - Chest Pain General Chief Complaint: Chest Pain Stated Complaint: chest pressure Time Seen by Provider: 09/16/24 08:09 Source: patient Mode of arrival: ambulatory Limitations: no limitations History of Present Illness ED Provider: DR. Theodore HPI narrative: 39-year-old male came in for evaluation of mid chest pressure started 7 days ago after he was infected with COVID pain was described as mostly pressure on his whole entire chest, no radiation, usually worsened by eating greasy Food. At similar symptoms in the past patient was given shot in the ED relieved his pain. 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 Pain is mostly with movement or taking a deep breath but also when he eats increase the pain. No fever, no chills, no recent trauma, patient declined using IV drugs or cocaine in particular, no family history of coronary artery disease, no coughing, no recent travel, no lower extremity swelling or tenderness. Related Data Previous Rx's ?Medication ?Instructions ?Recorded amoxicillin 875 mg-potassium 1 tab PO BID #20 tabs 02/14/22 clavulanate 125 mg tablet ibuprofen 600 mg tablet 600 mg PO Q6H PRN pain #30 tabs 02/14/22 cyclobenzaprine 10 mg tablet 10 mg PO TID PRN muscle spasm #10 12/14/22 tabs ibuprofen 600 mg tablet 600 mg PO Q6H PRN pain #30 tabs 12/14/22 lidocaine 5 % topical patch 1 patch topical DAILY #15 ea 12/14/22 (Lidoderm) Allergies Allergy/AdvReac Type Severity Reaction Status Date / Time No Known Allergies Allergy Verified 09/16/24 08:03 Review of Systems 2 Review of Systems: All other systems are reviewed and are negative Constitutional: Reports as per HPI and Reports no additional constitutional complaints Eyes: Reports as per HPI and Reports no additional eye complaints Reports system reviewed and no additional complaints, except as documented Cardiovascular: Reports as per HPI and Reports no additional cardiovascular complaints Respiratory: Reports as per HPI and Reports no additional respiratory complaints Gastrointestinal: Reports as per HPI and Reports no additional gastrointestinal complaints Genitourinary: Reports no additional female genitourinary complaints Musculoskeletal: Reports no additional musculoskeletal complaints Skin/Breast: Reports system reviewed and no additional complaints, except as docu Psychiatric: Reports no additional psychiatric complaints Endocrine: Reports no additional endocrine complaints Hematologic/Lymphatic: Reports no additional hematologic/lymphatic complaints Allergic/Immunologic: Reports no additional allergic/immunologic complaints Reports system reviewed and no additional complaints, except as documented and Reports Abnormal speech present [facility] Past Medical History Medical History Asthma Social History Social History Alcohol intake: never Smoked in Last 30 Days: Yes Use of substances other than those prescribed or required for medical reasons: No Advance Directives: No Advance Directives Information Provided: No Physical Exam 2 Vital Signs: Vital Signs: Last Vital Signs Temp 98.8 F 09/16/24 08:02 Pulse 75 09/16/24 08:02 Resp 16 09/16/24 08:02 BP 145/71 H 09/16/24 08:02 Pulse Ox 99 09/16/24 08:02 O2 Del Method Room Air 09/16/24 08:02 BMI result Body Mass Index 29.3 Vital signs have been reviewed and appear to be correct. Blood pressure elevated. Heart rate normal. Respiratory rate normal. Temperature normal. Oxygen saturation normal. Appearance: Alert. Oriented X3. No acute distress. Head: Normal external exam. Normocephalic. Atraumatic. No Hinojosa signs noted. No raccoon eyes noted Eyes: PERRLA. EOMI. Conjunctiva and sclera normal. Eyelids normal. ENT: TM's Normal. Pharynx normal. Uvula midline. Moist mucous membranes. No trismus noted. No drooling noted. No muffled voice noted. Neck: Normal inspection. Neck supple. FROM. No adenopathy. Thyroid Normal. No meningeal signs. No neck mass noted. CVS: Normal heart rate and rhythm. Heart sound normal. No murmurs noted. Pulses normal throughout. Respiratory: No respiratory distress. Painless inspiration. Breath sounds normal. No wheezes/rales/rhonchi noted. Reproducible tenderness over the sternum. No accessory muscle usage noted or decreased air movement noted. Abdomen: Soft and nontender. Bowel sounds normal in all 4 quadrants. No distention noted. No organomegaly noted. No visible injury noted. Back: No CVA tenderness. Full range of motion noted. Skin: Skin warm and dry. Normal skin color. Normal skin turgor. No rashes/lesions/lacerations noted. Extremities: No lower extremity edema. Extremities exhibit normal range of motion. Extremities nontender. Neuro: Oriented X 3. Cranial nerve exam: II-XII are grossly intact No motor deficit. No sensory deficit. Reflexes normal. Course Reevaluation(s) Reevaluation #1: Feels better after was given Toradol IM, labs are unremarkable, chest/EKG unremarkable, D-dimer /troponin negative. Patient is reproducible physical exam is consistent with costochondritis. Reassure, NSAIDs if needed for pain. COVID-19 is positive, reportedly He was positive 1 week ago currently patient has no symptoms. Time: 10:00 Medications Administered Discontinued Medications Generic Name Dose Route Start Last Admin Trade Name Freq PRN Reason Stop Dose Admin Ketorolac Tromethamine 15 mg 09/16/24 08:14 09/16/24 08:55 Ketorolac Tromethamine 15 Mg/Ml Vial IM 09/16/24 08:15 15 mg ONCE ONE Administration Medical Decision Making Differential Diagnosis Differential Diagnoses: The differential diagnosis associated with the presentation includes ( ACS, pulmonary embolism, pneumonia, pneumothorax, pleural effusion, costochondritis, chest wall pain, COVID infection, electrolyte derangement.) Admission/Observation Consideration of admission/observation: Escalation of care including admission/observation considered Lab Data MDM Lab Attestation statement: I reviewed the patient's lab results. 09/16/24 08:28 09/16/24 08:28 Labs: Lab Results 09/16/24 Range/Units 08:28 WBC 8.2 (4.8-10.8) X10*3/uL RBC 5.39 (4.60-5.80) X10*6/uL Hgb 16.4 (14.0-18.0) g/dl Hct 48.1 (42.0-52.0) % MCV 89.2 (80.0-98.0) fL MCH 30.4 (27.0-33.0) pg MCHC 34.1 (31.0-36.0) g/dl RDW 13.7 (11.0-16.0) % Plt Count 219 (160-400) X10*3/uL MPV 10.9 (9.4-12.4) fL Immature Gran % (Auto) 0.6 H (0.0-0.4) % Neut % (Auto) 65.9 (45-73) % Lymph % (Auto) 21.9 (20-40) % Hunt % (Auto) 8.9 (2-11) % Eos % (Auto) 2.1 (0-4) % Baso % (Auto) 0.6 (0-2) % Lymph # (Auto) 1.8 (1.2-4.9) X10*3/uL Hunt # (Auto) 0.7 (0.1-1.2) X10*3/uL Eos # (Auto) 0.2 (0.0-0.4) X10*3/uL Baso # (Auto) 0.1 (0.0-0.2) X10*3/uL Abs Immat Gran (auto) 0.05 H (0.00-0.03) X10*3/uL Absolute Neuts (auto) 5.4 (2.0-8.3) x10*3/uL Absolute Nucleated RBC 0.000 (0.0-0.012) X10*3/uL Nucleated RBC % (auto) 0.0 (0.0-0.2) /100WBC D-Dimer High Sensitivty < 150 NG/ML Sodium 140 (135-145) mmol/L Potassium 4.3 (3.3-5.1) mmol/L Chloride 106 (96-108) mmol/L Carbon Dioxide 25 (22-29) mmol/L Anion Gap 13 (12-20) BUN 18 H (9-16) mg/dL Creatinine 0.88 (0.5-1.4) mg/dL Estim Creat Clear Calc 97.5 Estimated GFR > 60 Random Glucose 130 H (60-115) mg/dL Calcium 9.3 (8.4-10.2) mg/dL Total Bilirubin 0.3 (0.0-1.0) mg/dL Direct Bilirubin 0.1 (0.0-0.5) mg/dL AST 22 (5-37) U/L ALT 41 H (0-40) U/L Alkaline Phosphatase 64 (39-117) U/L Troponin I High Sens < 2.7 (<3.5-35.0) ng/L Total Protein 7.1 (6.5-8.0) g/dL Albumin 4.5 (3.5-5.0) g/dL Lipase 34 (8-78) U/L Influenza Type A (PCR) NEGATIVE (Negative) Influenza Type B (PCR) NEGATIVE (Negative) RSV RNA Qual (PCR) NEGATIVE (Negative) SARS-CoV-2 RNA (RT-PCR) POSITIVE A (Negative) Independent Interpretation I performed an independent interpretation of an: EKG ( Normal sinus rhythm at 80 beats per minutes, normal intervals, no ST-T changes, no change from prior EKG.) and Plain X-Ray ( Chest: No acute intrathoracic pathology.) Radiology Impression Discussion of test interpretation with radiology: I have reviewed the radiologist's reading. Discharge Plan Discharge Clinical Impression: Costalchondritis, COVID-19 virus infection Patient Disposition: Home, Self-Care Instructions: Costochondritis (ED) Additional Instructions: Take ibuprofen 200 mg tablet every 6 hours if needed for pain (over a counter medication). Prescriptions: No Action ibuprofen 600 mg tablet 600 mg PO Q6H PRN (Reason: pain) Qty: 30 0RF amoxicillin-pot clavulanate 875-125 mg tablet 1 tab PO BID Qty: 20 0RF ibuprofen 600 mg tablet 600 mg PO Q6H PRN (Reason: pain) Qty: 30 0RF cyclobenzaprine 10 mg tablet 10 mg PO TID PRN (Reason: muscle spasm) Qty: 10 0RF lidocaine [Lidoderm] 5 % adhesive patch,medicated 1 patch topical DAILY Qty: 15 0RF Rx Instructions: leave on most painful area for up to 12 hrs Stand Alone Forms: Work/School Release Print Language: Romansh
[2024-09-16 08:36] LABS: Basophils Absolute Auto 0.1 X10*3/uL (0.0-0.2); Basophils Percent Auto 0.6 % (0-2); Eosinophils Absolute Auto 0.2 X10*3/uL (0.0-0.4); Eosinophils Percent Auto 2.1 % (0-4); Hematocrit 48.1 % (42.0-52.0); Hemoglobin 16.4 g/dl (14.0-18.0); Imm Gran Abs Auto 0.05 X10*3/uL (0.00-0.03); Imm Gran Pct Auto 0.6 % (0.0-0.4); Lymphocytes Absolute Auto 1.8 X10*3/uL (1.2-4.9); Lymphocytes Percent Auto 21.9 % (20-40); MANUAL DIFF FLAG NO; Mean Corpuscular HGB Conc 34.1 g/dl (31.0-36.0); Mean Corpuscular Hemoglobin 30.4 pg (27.0-33.0); Mean Corpuscular Volume 89.2 fL (80.0-98.0); Mean Platelet Volume 10.9 fL (9.4-12.4); Monocytes Absolute Auto 0.7 X10*3/uL (0.1-1.2); Monocytes Percent Auto 8.9 % (2-11); Neutrophils Absolute Auto 5.4 x10*3/uL (2.0-8.3); Neutrophils Percent Auto 65.9 % (45-73); Platelet Count 219 X10*3/uL (160-400); Red Blood Count 5.39 X10*6/uL (4.60-5.80); Red Cell Distribution Width 13.7 % (11.0-16.0); White Blood Count 8.2 X10*3/uL (4.8-10.8)
[2024-09-16 08:50] LABS: D Dimer High Sensitivity < 150 NG/ML
[2024-09-16] MEDS: Ketorolac Tromethamine 15 MG/ML VIAL IM (08:55)
[2024-09-16 09:00] LABS: Alanine Aminotransferase 41 U/L (0-40); Albumin Level 4.5 g/dL (3.5-5.0); Alkaline Phosphatase 64 U/L (39-117); Anion Gap 13 (12-20); Aspartate Amino Transferase 22 U/L (5-37); Bilirubin Direct 0.1 mg/dL (0.0-0.5); Bilirubin Total 0.3 mg/dL (0.0-1.0); Blood Urea Nitrogen 18 mg/dL (9-16); Calcium 9.3 mg/dL (8.4-10.2); Carbon Dioxide 25 mmol/L (22-29); Chloride 106 mmol/L (96-108); Creatinine Clr Calc Pharmacy 97.5; Estimated Glomerular Filt Rate > 60; Glucose Random 130 mg/dL (60-115); Lipase 34 U/L (8-78); Potassium 4.3 mmol/L (3.3-5.1); Sodium 140 mmol/L (135-145); Total Protein 7.1 g/dL (6.5-8.0); Troponin-I High Sensitivity < 2.7 ng/L (<3.5-35.0)
[2024-09-16 09:38] LABS: Influenza A PCR NEGATIVE (Negative); Influenza B PCR NEGATIVE (Negative); Resp Syncy Virus RNA Qual PCR NEGATIVE (Negative); SARS COV2 PCR INHOUSE POSITIVE (Negative)
[2024-09-16 10:12] VITALS: BP 145/71; PULSE 75; RESP 18; TEMP 37.1; O2SAT 99
== END 2024-09-16 10:12 | disposition home or self-care (01) ==
PROVIDERS: Emergency Provider Emergency Medicine
DX: U07.1 COVID-19 (principal); M94.0 Chondrocostal junction syndrome [Tietze]; J45.909 Unspecified asthma, uncomplicated; Z79.899 Other long term (current) drug therapy
CPT/HCPCS: 0241U; 36415; 71045; 80048; 80076; 83690; 84484; 85025; 85379; 93005; 96372; 99284; 99285; J1885

== ENCOUNTER → 2024-09-16 07:54 | Outpatient (BNV) | payer SELFPAY | PROVIDERS: Emergency Provider Emergency Medicine; Visit Provider Internal Medicine | DX: R07.9 Chest pain, unspecified (principal) | CPT/HCPCS: 93010 ==

== ENCOUNTER 2025-01-17 12:32 | Emergency (ER) | payer SELFPAY ==
[2025-01-17 13:15] VITALS: BP 118/59; PULSE 65; RESP 18; TEMP 36.7; O2SAT 99; BMI 24.5
--- NOTE | 2025-01-17 13:20 | ED.GENADULT ---
HPI - General Adult General Chief complaint: Back Pain/Injury Stated complaint: Back injury @ work Time Seen by Provider: 01/17/25 13:20 Source: patient, RN notes reviewed and old records reviewed Mode of arrival: ambulatory Limitations: no limitations History of Present Illness ED Provider: Cleo HPI narrative: 39-year-old male presents evaluation back pain. Patient works at a f[employer], [employer]. States that he was helping and individual into their car The patient reports that he bent over to prevent the other individual from falling and believes he pulled a muscle in his back He has 8/10 pain across his entire lower back. The patient himself did not fall Denies any numbness, tingling, weakness, difficulty urinating Related Data Previous Rx's ?Medication ?Instructions ?Recorded amoxicillin 875 mg-potassium 1 tab PO BID #20 tabs 02/14/22 clavulanate 125 mg tablet ibuprofen 600 mg tablet 600 mg PO Q6H PRN pain #30 tabs 02/14/22 cyclobenzaprine 10 mg tablet 10 mg PO TID PRN muscle spasm #10 12/14/22 tabs ibuprofen 600 mg tablet 600 mg PO Q6H PRN pain #30 tabs 12/14/22 lidocaine 5 % topical patch 1 patch topical DAILY #15 ea 12/14/22 (Lidoderm) cyclobenzaprine 10 mg tablet 10 mg PO TID PRN muscle spasm #20 01/17/25 tabs ibuprofen 600 mg tablet 600 mg PO Q6H PRN pain #20 tabs 01/17/25 Allergies Allergy/AdvReac Type Severity Reaction Status Date / Time No Known Allergies Allergy Verified 01/17/25 13:18 Review of Systems Constitutional: Constitutional: Denies body ache(s), Denies chills and Denies headache(s) ENT: Denies vertigo, Denies dizziness and Denies headache(s) Cardiovascular: Cardiovascular: Denies chest pain Respiratory: Respiratory: Denies cough Gastrointestinal: Gastrointestinal: Denies tenesmus, Denies nausea and Denies vomiting Musculoskeletal: Musculoskeletal: Reports back pain, Denies arthralgias, Denies joint swelling, Denies limited range of motion, Denies muscle cramps, Denies muscle weakness, Denies numbness, Denies radiating pain into limb, Reports stiffness and Denies tingling Integumentary/Breasts: Skin/Breast: Denies rash Neurologic: Denies vertigo, Denies dizziness, Denies headache(s), Denies numbness and Denies tingling Psychiatric: Psychiatric: Denies anxiety PMFSH Past Medical History Medical History Asthma Social History Social History Alcohol intake: never Physical Exam ED Vital Signs: Vital Signs - 24 hr 01/17/25 13:15 Temperature 98.1 F Pulse Rate 65 Respiratory Rate 18 Blood Pressure 118/59 L Pulse Oximetry 99 Oxygen Delivery Method Room Air BMI result Body Mass Index 24.5 Const General: healthy appearing, comfortable, no acute distress, alert and awake Nutritional Appearance: well nourished Orientation/consciousness: patient oriented x3 HENMT Head: Yes normocephalic and Yes atraumatic Eyes Eyelids: Yes eyelids normal Conjunctivae: conjunctivae normal Sclerae: sclerae normal Corneas: corneas normal Pupils: Equal, round and reactive pupils present EOM: EOMs intact bilaterally Neck Neck: Yes full ROM Resp Effort & Inspection: normal respiratory effort, able to speak in complete sentences and not labored Back/Spine/Pelvis Other: There is vague tenderness across the lumbar region. No focal vertebral tenderness. No step-offs or deformities. Straight leg raise negative bilaterally. Skin General skin exam: elasticity normal Neuro General: patient oriented x3 Cranial nerves: Yes Equal, round and reactive pupils present and Yes Bilaterally intact EOM present Cognition (Neuro): normal cognition Motor exam (neuro): 5/5 motor strength present throughout Extrem Other: Moving all extremities well without any obvious deformities Medical Decision Making Medical Decision Making MDM Narrative: 39-year-old male presents for evaluation of lower back pain after helping albuterol once in a car. The patient reports bending over when this happened. He did not fall. There was no trauma. His exam is consistent with lumbar strain. Straight leg raise negative, no neuro deficits, no weakness, dog difficulty urinating. No warning signs for cauda equina syndrome. Given that there was no trauma the patient is young has a very low suspicion for compression fracture. I discussed possible x-ray with the patient soon as deferred due to low likelihood for fracture Differential Diagnosis Differential Diagnoses: The differential diagnosis associated with the presentation includes Cervical strain Radiculopathy Disc herniation Lower back strain Compression fracture likely Tests considered The following testing was considered but not selected: Considered lumbar x-ray Prescription Management I considered prescription management with: Pain Medication Discharge Plan Discharge Clinical Impression: Strain of lumbar region Patient Disposition: Home, Self-Care Instructions: Acute Low Back Pain (ED) Additional Instructions: Your physical exam is reassuring. Your pain is most likely related to a muscle spasm or pinched nerve. Use ibuprofen as needed for pain. Use cyclobenzaprine as needed for muscle spasms. This may make you drowsy, do not drink alcohol or drive after taking it Prescriptions: New cyclobenzaprine 10 mg tablet 10 mg PO TID PRN (Reason: muscle spasm) Qty: 20 0RF ibuprofen 600 mg tablet 600 mg PO Q6H PRN (Reason: pain) Qty: 20 0RF No Action ibuprofen 600 mg tablet 600 mg PO Q6H PRN (Reason: pain) Qty: 30 0RF amoxicillin-pot clavulanate 875-125 mg tablet 1 tab PO BID Qty: 20 0RF ibuprofen 600 mg tablet 600 mg PO Q6H PRN (Reason: pain) Qty: 30 0RF cyclobenzaprine 10 mg tablet 10 mg PO TID PRN (Reason: muscle spasm) Qty: 10 0RF lidocaine [Lidoderm] 5 % adhesive patch,medicated 1 patch topical DAILY Qty: 15 0RF Rx Instructions: leave on most painful area for up to 12 hrs Stand Alone Forms: Work/School Release Print Language: Serbian
[2025-01-17 15:41] VITALS: BP 118/59; PULSE 65; RESP 18; TEMP 36.7; O2SAT 99
== END 2025-01-17 15:41 | disposition home or self-care (01) ==
PROVIDERS: Emergency Provider Emergency Medicine
DX: S39.012A Strain of muscle, fascia and tendon of lower back, initial encounter (principal); X50.0XXA Overexertion from strenuous movement or load, initial encounter; Y93.F9 Activity, other caregiving; Y92.128 Other place in nursing home as the place of occurrence of the external cause; Y99.9 Unspecified external cause status
CPT/HCPCS: 99282; 99283

== ENCOUNTER 2025-03-14 10:33 | Emergency (ER) | payer SELFPAY ==
--- NOTE | ~2025-03-14 | XR_ITS ---
EXAMINATION: XR LUMBOSACRAL SPINE CLINICAL INFORMATION: pain s/p fall COMPARISON: May 25, 2007. TECHNIQUE: Three views of the lumbosacral spine. FINDINGS: Prominent left transverse processes into the left hemisacrum with sclerosis and subchondral cyst formation. Rudimentary ribs at T12. Dextroconvex curvature of the lumbar spine apex at L2-3. Marginal osteophyte formation and endplate sclerosis with decreased intervertebral disc height at L2-3, L3-4 levels. No acute cortical disruption or malalignment. No lytic or blastic lesions. XR/XR lumbar spine 2-3V IMPRESSION: Multilevel lumbar spondylosis. Left-sided Bertolotti syndrome should be considered.. Electronically signed by: Marlo Rivera MD 03/14/2025 12:26 PM EDT
--- NOTE | ~2025-03-14 | XR_ITS ---
EXAMINATION: XR SACRUM AND COCCYX CLINICAL INFORMATION: pain COMPARISON: None available. TECHNIQUE: 2 views of the sacrum and 2 views of the coccyx were obtained. FINDINGS: There is no definite fracture, dislocation, or suspicious bone lesion. The SI joints have a normal appearance. There is partial sacralization of L5, with pseudoarticulation of the left transverse process with the left sacral li. The coccyx has an unremarkable appearance without definite fracture. There is mild to moderate degenerative disc change at L4-5 and L5-S1. There is no soft tissue abnormality. XR/XR sacrum coccyx min 2V IMPRESSION: No acute bony abnormalities. Electronically signed by: Vinod Perez MD 03/14/2025 12:34 PM EDT
[2025-03-14 10:46] VITALS: BP 144/81; PULSE 93; RESP 18; TEMP 36.7; O2SAT 100; BMI 24.7
--- NOTE | 2025-03-14 11:59 | ED_ITS ---
HPI - Back Pain/Injury General Chief Complaint: Back Pain/Injury Stated Complaint: Lower Back Pain, Leg Pain (Both) Time Seen by Provider: 03/14/25 12:29 Source: patient, RN notes reviewed and old records reviewed Mode of arrival: ambulatory Limitations: no limitations History of Present Illness ED Provider: Smitha HPI Narrative: Patient is a 39-year-old male presenting in the emergency department with complaint of lower back pain intermittently radiating down both legs. States that he injured his back at work around 1 month ago, was prescribed ibuprofen and Flexeril and symptoms somewhat improved but never fully resolved. Reports over the past few days the pain has worsened, reports difficulty getting out of bed. Denies bowel or bladder incontinence, saddle anesthesia, fevers. Denies history of IV drug use or cancer. MD elicited complaint: back pain Onset (ago): day(s) Timing: progressively worsening Related Data Previous Rx's ?Medication ?Instructions ?Recorded amoxicillin 875 mg-potassium 1 tab PO BID #20 tabs 02/14/22 clavulanate 125 mg tablet ibuprofen 600 mg tablet 600 mg PO Q6H PRN pain #30 tabs 02/14/22 cyclobenzaprine 10 mg tablet 10 mg PO TID PRN muscle spasm #10 12/14/22 tabs ibuprofen 600 mg tablet 600 mg PO Q6H PRN pain #30 tabs 12/14/22 lidocaine 5 % topical patch 1 patch topical DAILY #15 ea 12/14/22 (Lidoderm) cyclobenzaprine 10 mg tablet 10 mg PO TID PRN muscle spasm #20 01/17/25 tabs ibuprofen 600 mg tablet 600 mg PO Q6H PRN pain #20 tabs 01/17/25 cyclobenzaprine 10 mg tablet 10 mg PO TID PRN muscle spasm #10 03/14/25 tabs lidocaine 5 % topical patch 1 patch topical DAILY #15 ea 03/14/25 naproxen 500 mg tablet 500 mg PO BID #28 tabs 03/14/25 prednisone 20 mg tablet 20 mg PO DAILY #7 tabs 03/14/25 Allergies Allergy/AdvReac Type Severity Reaction Status Date / Time No Known Allergies Allergy Verified 03/14/25 10:48 Review of Systems Review of Systems: As per HPI Yes all other systems are reviewed and are negative Constitutional: Constitutional: Reports as per HPI PMFSH Past Medical History Medical History Asthma Social History Social History Alcohol intake: never Advance Directives: No Advance Directives Information Provided: Yes Physical Exam Vital Signs: Vital Signs: Last Vital Signs Temp 98.1 F 03/14/25 10:46 Pulse 93 03/14/25 10:46 Resp 18 03/14/25 10:46 BP 144/81 H 03/14/25 10:46 Pulse Ox 100 03/14/25 10:46 O2 Del Method Room Air 03/14/25 10:46 BMI result Body Mass Index 24.7 Vital signs have been reviewed and appear to be correct. Blood pressure normal. Heart rate normal. Respiratory rate normal. Temperature normal. Oxygen saturation normal. Const: General: cooperative, healthy appearing and no acute distress Or ientation/consciousness: oriented to person, oriented to place, oriented to time and patient oriented x3 Limitations: no limitations HEENT: Head: Yes normocephalic and Yes atraumatic Ears: external ears normal General nose exam: Normal external nose present Face and sinus: Yes face symmetric Mouth: oropharynx normal and moist mucous membranes Throat: Yes uvula midline Eyes: Pupils: Equal, round and reactive pupils present Neck: Neck: Yes normal visual inspection and Yes supple Resp: Effort & Inspection: normal respiratory effort and able to speak in complete sentences Auscultation: clear to auscultation bilaterally Cardio: Rate: regular rate Rhythm: regular rhythm Heart sounds: S1 normal heart sound present and S2 normal heart sound present GI: Palpation (GI): Soft to palpation and nontender Auscultation: normoactive bowel sounds : General: Yes no CVA tenderness Back/Spine/Pelvis: Back: no CVA tenderness Thoracic/Lumbar Spine: thoracic and lumbar spine normal to inspection, thoraco-lumbar ROM normal, straight leg raise negative bilaterally, pain with thoraco-lumbar ROM, No thoracic spinal tenderness and No lumbar spinal tenderness Pelvis: no pain with anterior- posterior compression and no pain with lateral compression Sacroiliac joints: bilaterally nontender Skin: General skin exam: elasticity normal and turgor normal Neuro: General: oriented to person, oriented to place, oriented to time, patient oriented x3, gait normal, tone normal, moves all extremities, Normal light touch and pain sensation, no focal motor deficits, CN's II-XI intact bilaterally and deep tendon reflexes 2+ bilaterally Cranial nerves: Yes Equal, round and reactive pupils present Cognition (Neuro): normal cognition Motor exam (neuro): 5/5 motor strength present throughout, Normal motor muscle tone present throughout and Motor abnormalities not present Extrem: General: Yes full ROM, Yes no pedal edema and Yes no calf tenderness Psych: Mental Status: mental status grossly normal Affect: normal affect Thought process: Normal thought process present Course Course Course Narrative: This is an RME: Additional HPI, ROS, PE not included below will be deferred to primary provider. RME assessment and note performed by: Kell Patel PA-C This is a 39-year-old male who presents emergency department with complaints of low back pain. Patient reports that he was seen in December due to back pain. 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 He was seen afterwards, did not have any images performed however states that he was discharged on ibuprofen and muscle relaxants which he has been taking with out any relief. Patient has tenderness palpation along the midline lumbar spine, and paraspinous muscles. He is ambulatory with antalgic gait. No history of IVDA Plan: X-rays, further ER evaluation needed. Medical Decision Making Medical Decision Making MDM Narrative: Patient is a 39-year-old male presenting in the emergency department with complaint of lower back pain intermittently radiating down both legs. On exam patient is awake, A+Ox3, VS WNL, afebrile, normal neurological exam without focal deficits, physical exam findings as above. Given reported symptoms and physical exam findings, initial differential includes but is not limited to initial differential includes lumbar strain, lumbar radiculopathy, degenerative disc disease, disc herniation, spinal stenosis, spondylosis. Less likely vertebral fracture. Do not suspect malignancy/mass, SEA, cauda equina/cord compression. X-ray lumbar spine notable for multilevel lumbar spondylosis, sacrum/coccyx unremarkable. My interpretation is in agreement with the radiologist's interpretation. Results discussed with patient all questions answered. Will send prescriptions for Flexeril, naproxen, prednisone and topical lidocaine patches. Discussed with patient that at this point he may require physical therapy to improve symptoms, advised to follow up with PCP. Patient states he does not currently have a PCP. Advised patient that some urgent cares are able to refer to physical therapy. Return precautions discussed. Patient verbalized understanding of and agreement with plan. Differential Diagnosis Differential Diagnoses: The differential diagnosis associated with the presentation includes As per [facility] [place] Independent Interpretation I performed an independent interpretation of an: Plain X-Ray Interpretation: X-ray lumbar spine notable for multilevel lumbar spondylosis, sacrum/coccyx unremarkable. Radiology Impression Discussion of test interpretation with radiology: I have reviewed the radiologist's reading. Radiologist Impression: XR/XR lumbar spine 2-3V IMPRESSION: Multilevel lumbar spondylosis. Left-sided Bertolotti syndrome should be considered.. XR/XR sacrum coccyx min 2V IMPRESSION: No acute bony abnormalities. External Record Review External record reviewed: Inpatient record, Office record and Outpatient record Prescription Management I considered prescription management with: Pain Medication and Other Discharge Plan Discharge Clinical Impression: Lumbar radiculopathy Patient Disposition: Home, Self-Care Instructions: Lumbar Radiculopathy (ED), Lower Back Exercises (ED) Additional Instructions: You were evaluated in the emergency department today for back pain. Your evaluation did not show signs of medical conditions requiring emergent intervention at this time. You have been prescribed a muscle relaxer called Flexeril (cyclobenzaprine) which you may take every 8 hours as needed for spasms. Do not drive, drink alcohol, or operate heavy machinery while taking this as it can cause drowsiness. You have been prescribed 5% topical lidocaine patches which you can wear for up to 12 hours in a 24 hour period. Do not apply heat directly over the patches. You have been prescribed a course of prednisone which is a steroid to decrease inflammation. Please schedule an appointment for follow-up with your primary care physician this week for further evaluation of your symptoms. Return to the emergency department if you experience worsening back pain, difficulty walking, fevers, numbness, tingling, incontinence, groin numbness or tingling, or any other concerning symptoms. Prescriptions: New cyclobenzaprine 10 mg tablet 10 mg PO TID PRN (Reason: muscle spasm) Qty: 10 0RF prednisone 20 mg tablet 20 mg PO DAILY Qty: 7 0RF naproxen 500 mg tablet 500 mg PO BID Qty: 28 0RF lidocaine 5 % adhesive patch,medicated 1 patch topical DAILY Qty: 15 0RF Rx Instructions: leave on most painful area for up to 12 hrs No Action ibuprofen 600 mg tablet 600 mg PO Q6H PRN (Reason: pain) Qty: 30 0RF amoxicillin-pot clavulanate 875-125 mg tablet 1 tab PO BID Qty: 20 0RF ibuprofen 600 mg tablet 600 mg PO Q6H PRN (Reason: pain) Qty: 30 0RF cyclobenzaprine 10 mg tablet 10 mg PO TID PRN (Reason: muscle spasm) Qty: 10 0RF lidocaine [Lidoderm] 5 % adhesive patch,medicated 1 patch topical DAILY Qty: 15 0RF Rx Instructions: leave on most painful area for up to 12 hrs cyclobenzaprine 10 mg tablet 10 mg PO TID PRN (Reason: muscle spasm) Qty: 20 0RF ibuprofen 600 mg tablet 600 mg PO Q6H PRN (Reason: pain) Qty: 20 0RF Stand Alone Forms: Work/School Release Print Language: Danish
[2025-03-14 13:49] VITALS: BP 106/68; PULSE 66; RESP 16; O2SAT 100
[2025-03-14 13:59] VITALS: BP 106/68; PULSE 66; RESP 16; TEMP 36.4; O2SAT 100
[2025-03-14] MEDS: predniSONE 20 MG TABLET PO (14:12)
[2025-03-14] MEDS: Cyclobenzaprine HCl 10 MG TABLET PO (14:12)
[2025-03-14] MEDS: Ketorolac Tromethamine 30 MG/ML VIAL IM (14:12)
== END 2025-03-14 14:16 | disposition home or self-care (01) ==
PROVIDERS: Emergency Provider Emergency Medicine
DX: M54.16 Radiculopathy, lumbar region (principal); M54.50 Low back pain, unspecified; Z79.899 Other long term (current) drug therapy
CPT/HCPCS: 72100; 72220; 96372; 99283; 99284; J1885

== ENCOUNTER → 2025-03-14 11:56 | Outpatient (BNV) | payer SELFPAY | PROVIDERS: Emergency Provider Emergency Medicine; Visit Provider Radiology Diagnostic Radiology | DX: M47.896 Other spondylosis, lumbar region (principal); M54.50 Low back pain, unspecified | CPT/HCPCS: 72100; 72220 ==

== ENCOUNTER 2025-04-06 06:32 | Emergency (ER) | payer MEDICAID, SELFPAY ==
[2025-04-06 06:34] VITALS: BP 130/80; PULSE 98; RESP 20; TEMP 36.6; O2SAT 97; BMI 25.6
--- NOTE | 2025-04-06 07:14 | ED_ITS ---
HPI - General Adult General Chief complaint: Skin/Abscess/Foreign Body Stated complaint: buttock pain and open wound Time Seen by Provider: 04/06/25 07:03 Source: patient Mode of arrival: ambulatory Limitations: no limitations History of Present Illness HPI narrative: This is a 39-year-old man with a past medical history of back pain who presents for evaluation of cyst. The patient states that he has previously had a cyst when he was younger in the same area. Patient reports previously having it drained. Patient reports developing pain in the area over the last 2 days. He states no fevers or chills. He states no trauma. He states no GI or symptoms. He states no known drug allergy. Related Data Previous Rx's ?Medication ?Instructions ?Recorded amoxicillin 875 mg-potassium 1 tab PO BID #20 tabs 02/14/22 clavulanate 125 mg tablet ibuprofen 600 mg tablet 600 mg PO Q6H PRN pain #30 tabs 02/14/22 cyclobenzaprine 10 mg tablet 10 mg PO TID PRN muscle spasm #10 12/14/22 tabs ibuprofen 600 mg tablet 600 mg PO Q6H PRN pain #30 tabs 12/14/22 lidocaine 5 % topical patch 1 patch topical DAILY #15 ea 12/14/22 (Lidoderm) cyclobenzaprine 10 mg tablet 10 mg PO TID PRN muscle spasm #20 01/17/25 tabs ibuprofen 600 mg tablet 600 mg PO Q6H PRN pain #20 tabs 01/17/25 cyclobenzaprine 10 mg tablet 10 mg PO TID PRN muscle spasm #10 03/14/25 tabs lidocaine 5 % topical patch 1 patch topical DAILY #15 ea 03/14/25 naproxen 500 mg tablet 500 mg PO BID #28 tabs 03/14/25 prednisone 20 mg tablet 20 mg PO DAILY #7 tabs 03/14/25 Allergies Allergy/AdvReac Type Severity Reaction Status Date / Time No Known Allergies Allergy Verified 04/06/25 06:35 Review of Systems Review of Systems: ROS as per HPI [facility] Past Medical History Medical History Asthma Social History Social History Alcohol intake: never Advance Directives: No Advance Directives Information Provided: Yes Physical Exam ED Vital Signs: Vital Signs - 24 hr 04/06/25 06:34 Temperature 97.9 F Pulse Rate 98 Respiratory Rate 20 Blood Pressure 130/80 Pulse Oximetry 97 Oxygen Delivery Method Room Air BMI result Body Mass Index 25.6 Gen: NAD, AOx3 HEENT: NCAT, EOMI, normal conjunctiva CV: RRR Pulm: CTAB, no increased work of breathing GI: Soft, NTND, no rebound, guarding or rigidity Neuro: Grossly non focal Skin: Warm, dry, tender approximate 1 cm gluteal cleft fluctuance without erythema or purulence Procedures Abscess I/D Site: other (gluteal cleft) Local Anesthetic: lidocaine 1% Amount of anesthesia used (mL): 2 Technique: incised with blade Sent for culture/gram staining?: No Irrigation: Yes Packing used?: none Medical Decision Making Medical Decision Making MDM Narrative: Differential diagnosis includes, but is not limited to pilonidal cyst, cellulitis. Patient is afebrile and hemodynamically stable on room air. Exam is consistent with pilonidal cyst. Verbal consent is obtained and cyst is incised and drained without immediate complication. There is no evidence of cellulitis and although antibiotics were considered there is no indication for antibiotics given absence of cellulitis. On re-examination, patient is well-appearing and in no acute distress. Patient states feeling well. There is no indication for further emergent evaluation in this otherwise well-appearing patient as above. Patient is provided written and verbal instructions, educational materials, recommendations for outpatient follow-up with General surgery and primary care, strict return precautions and teach back is performed. Patient states understanding and agreement with plan of care. Patient is discharged home in stable and improved condition. Admission/Observation Consideration of admission/observation: Escalation of care including admission/observation considered Discharge Plan Discharge Clinical Impression: Pilonidal cyst Patient Disposition: Home, Self-Care Instructions: Pilonidal Cyst (ED) Additional Instructions: You were evaluated in the emergency for a pilonidal cyst. The cyst was incised and drained. Please continue to keep the area clean by washing a few times a day with soap and water. Please change your bandage at least once daily. Please apply a triple antibiotic ointment such as Neosporin 2-3x per day. Please follow up with primary care and general surgery in the next 1-2 weeks. Return to the emergency room with any new symptoms or concerns. Prescriptions: No Action ibuprofen 600 mg tablet 600 mg PO Q6H PRN (Reason: pain) Qty: 30 0RF amoxicillin-pot clavulanate 875-125 mg tablet 1 tab PO BID Qty: 20 0RF ibuprofen 600 mg tablet 600 mg PO Q6H PRN (Reason: pain) Qty: 30 0RF cyclobenzaprine 10 mg tablet 10 mg PO TID PRN (Reason: muscle spasm) Qty: 10 0RF lidocaine [Lidoderm] 5 % adhesive patch,medicated 1 patch topical DAILY Qty: 15 0RF Rx Instructions: leave on most painful area for up to 12 hrs cyclobenzaprine 10 mg tablet 10 mg PO TID PRN (Reason: muscle spasm) Qty: 20 0RF ibuprofen 600 mg tablet 600 mg PO Q6H PRN (Reason: pain) Qty: 20 0RF cyclobenzaprine 10 mg tablet 10 mg PO TID PRN (Reason: muscle spasm) Qty: 10 0RF prednisone 20 mg tablet 20 mg PO DAILY Qty: 7 0RF naproxen 500 mg tablet 500 mg PO BID Qty: 28 0RF lidocaine 5 % adhesive patch,medicated 1 patch topical DAILY Qty: 15 0RF Rx Instructions: leave on most painful area for up to 12 hrs Referrals: [facility] [place] [facility] [Provider Group] Juan Dennis MD [Emergency Provider] - Print Language: Citizen [place]
[2025-04-06] MEDS: Lidocaine HCl 1 % 20 ML VIAL 10 ML INFILTRATI (07:51)
[2025-04-06 08:03] VITALS: BP 130/80; PULSE 98; RESP 20; TEMP 36.6; O2SAT 97
== END 2025-04-06 08:03 | disposition home or self-care (01) ==
PROVIDERS: Emergency Provider Emergency Medicine
DX: L05.91 Pilonidal cyst without abscess (principal)
CPT/HCPCS: 10080; 99282; 99284; J2003